=== PATIENT | female | born 1970 | race Caucasian/White ===

== ENCOUNTER → 2018-04-18 09:05 | Outpatient (CLI) | payer OTHER, SELFPAY ==
--- NOTE | 2018-04-18 | DI.MG.S_ITS ---
BILATERAL DIGITAL SCREENING MAMMOGRAM 3D/2D WITH CAD: 04/18/2018 CLINICAL: Routine screening. Family history of breast cancer. Comparison is made to exams dated: 12/11/2016 mammogram - [facility] and 03/22/2010 mammogram - [facility]. There are scattered fibroglandular elements in both breasts. Current study was also evaluated with a Computer Aided Detection (CAD) system. There is an asymmetry in the right breast middle depth outer region seen on the craniocaudal view only. There is possible architectural distortion associated with the asymmetry. No other significant masses, calcifications, or other findings are seen in either breast. IMPRESSION: INCOMPLETE: NEEDS ADDITIONAL IMAGING EVALUATION The asymmetry in the right breast is indeterminate. Additional views with possible ultrasound are recommended. This exam was interpreted at Station ID: [id number]. NOTE: For mammograms, a report in lay terms will be sent to the patient. Approximately 15% of breast malignancies will not be visualized mammographically. In the management of a palpable breast mass, a negative mammogram must not discourage biopsy of a clinically suspicious lesion. Electronically Signed By: José Levi M.D. ecl/:04/22/2018 02:39:53 letter sent: Additional Imaging Needed ACR BI-RADS Category 0: Incomplete 3340F
== END ==
PROVIDERS: PCP Family Medicine; Visit Provider Registered Nurse
DX: Z12.31 Encounter for screening mammogram for malignant neoplasm of breast (principal); Z80.3 Family history of malignant neoplasm of breast
CPT/HCPCS: 77063; 77067

== ENCOUNTER → 2018-04-22 09:10 | Outpatient (CLI) | payer OTHER, SELFPAY ==
--- NOTE | 2018-04-22 | DI.MRI.S_ITS ---
PROCEDURE: MR FOOT RT WO CON INDICATIONS: MEDIAL ANKLE PAIN TECHNIQUE: Noncontrast sagittal T1 spin echo and T2 fast spin echo with fat saturation, long-axis T1 spin echo and T2 fast spin echo with fat saturation, short-axis T1 spin echo and T2 fast spin echo with fat saturation through the forefoot. COMPARISON: None. FINDINGS: Image quality: Diagnostic. Bones and joints: There is no acute fracture, dislocation, or suspicious osseous lesion identified involving the osseous structures of the midfoot or hindfoot. The ankle mortise is well-maintained. There is no osteochondral defect involving the tibial plafond toward the talar dome. Mild marrow edema is identified along the posterior margin of the talus near the posterior subtalar joint, which abuts a small os trigonum. There is a moderate-sized plantar calcaneal spur with corresponding marrow edema. There are mild to moderate degenerative changes involving the lateral tarsal metatarsal joints. No significant joint effusions are appreciated. Medial structures: The deltoid ligament is somewhat heterogeneous, but intact. The spring ligament is also intact. The tibialis posterior tendon demonstrates increased signal near the level of the navicular. A small amount of fluid is contained within its corresponding tendon sheath. The flexor hallucis longus and flexor digitorum longus tendons are intact. The posterior tibial nerve appears to be within normal limits through the region of the tarsal tunnel. Lateral structures: Irregularity of the anterior distal tibiofibular ligament is present. The posterior distal tibiofibular ligament is intact. There is thickening of the anterior talofibular ligament without a focal tear evident. Heterogeneity and increased signal of the posterior talofibular ligament is noted. The calcaneofibular ligament is intact. There is a short segment longitudinal split tear identified involving the peroneus brevis tendon with increased signal and heterogeneity along the region of the tip of the lateral malleolus. Small amount of fluid is contained within its corresponding tendon sheath. No complete tear is evident. There is mild increased signal identified involving the peroneus longus tendon without significant tearing. There is edema identified within the sinus tarsi. Anterior structures: The tibialis anterior, extensor digitorum longus, and extensor hallucis longus tendons appear to be intact. Posterior and plantar structures: There is mild increased signal and focal thickening involving the distal aspect of the Achilles tendon. No significant tearing is identified. Mild increased signal and thickening involving the medial band of the plantar fascia at its calcaneal attachment is present with mild edema evident within the adjacent soft tissues. There is no focal tearing evident. IMPRESSION: 1. Short segment longitudinal split tear of the peroneus brevis tendon with corresponding tendinopathy. There is also peroneus longus tendinopathy. 2. Scarring of the lateral ankle ligaments. Superimposed acute sprains are difficult to exclude. No full-thickness tears. 3. Mild distal tibialis posterior tendinopathy. 4. Mild distal Achilles tendinopathy. 5. Mild to moderate degenerative changes involving the lateral tarsal metatarsal joints. 6. Mild edema involving the posterior margin of the talus abuts a small os trigonum. This is nonspecific, but could potentially be a source of pain. 7. Small moderate-sized plantar calcaneal spur with corresponding thickening of the plantar fascia. Please correlate clinically to exclude plantar fasciitis. Dictated by: Norris Mandujano M.D. on 04/22/2018 at 16:02 Approved by: Norris Mandujano M.D. on 04/22/2018 at 16:10
== END ==
PROVIDERS: PCP Family Medicine; Visit Provider Orthopaedic Surgery
DX: M25.571 Pain in right ankle and joints of right foot (principal); S96.811A Strain of other specified muscles and tendons at ankle and foot level, right foot, initial encounter; M19.071 Primary osteoarthritis, right ankle and foot; M25.474 Effusion, right foot; M77.31 Calcaneal spur, right foot
CPT/HCPCS: 73718

== ENCOUNTER → 2018-05-11 10:06 | Outpatient (CLI) | payer OTHER, SELFPAY ==
--- NOTE | 2018-05-11 | DI.MG.S_ITS ---
UNILATERAL RIGHT DIGITAL DIAGNOSTIC MAMMOGRAM 3D/2D WITH ADDITIONAL VIEWS: 05/11/2018 CLINICAL: Additional evaluation requested from prior study. Comparison is made to exams dated: 04/18/2018 mammogram, 12/11/2016 mammogram - [facility], and 03/22/2010 mammogram - [facility]. There are scattered fibroglandular elements in right breast. Previously noted asymmetry in the right breast middle depth outer region seen on the craniocaudal view only on comparison screening mammogram resolves with additional views and likely represented superimposition of benign anatomic tissues. No significant masses, calcifications, or other findings are seen in the breast. IMPRESSION: INCOMPLETE: NEEDS ADDITIONAL IMAGING EVALUATION No mammographic evidence of malignancy in the imaged breast. A targeted ultrasound of the outer right breast is recommended and will be performed immediately following this exam. This exam was interpreted at Station ID: [id number]. NOTE: For mammograms, a report in lay terms will be sent to the patient. Approximately 15% of breast malignancies will not be visualized mammographically. In the management of a palpable breast mass, a negative mammogram must not discourage biopsy of a clinically suspicious lesion. Electronically Signed By: José Levi M.D. ecl/:05/11/2018 10:44:46 letter sent: Additional Imaging Needed ACR BI-RADS Category 0: Incomplete 3340F
--- NOTE | 2018-05-11 10:08 | DI.US.S_ITS ---
LIMITED ULTRASOUND OF RIGHT BREAST: 05/11/2018 CLINICAL: Patient returns today to evaluate a density in the right breast. Comparison is made to exams dated: 05/11/2018 mammogram, 04/18/2018 mammogram, 12/11/2016 mammogram - [facility], and 03/22/2010 mammogram - [facility]. Real-time and Doppler ultrasound of the right breast 7-11 o'clock region were performed. Rascon scale images of the real-time examination were reviewed. No underlying breast mass or abnormality is identified. IMPRESSION: NEGATIVE 1) No ultrasound findings to correlate with the asymmetry in the outer right breast seen on comparison screening mammography, which resolved with additional diagnostic views. 2) There is no sonographic evidence of malignancy in the imaged outer right breast. Return to annual screening mammography is recommended, next due in April 2019. This exam was interpreted at Station ID: [id number]. Electronically Signed By: José Levi M.D. ecl/:05/11/2018 11:55:28 letter sent: Normal Exam Ultrasound BI-RADS: 1 Negative
== END ==
PROVIDERS: PCP Registered Nurse; Visit Provider Registered Nurse
DX: R92.8 Other abnormal and inconclusive findings on diagnostic imaging of breast (principal)
CPT/HCPCS: 76642; 77065; G0279

== ENCOUNTER → 2018-12-14 11:29 | Outpatient (CLI) | payer OTHER, SELFPAY ==
[2018-12-14 12:04] LABS: Add Manual Diff / Slide Review NO; Basophils Absolute Auto 0 /uL (0-100); Basophils Percent Auto 0.4 % (0-2); Eosinophils Absolute Auto 100 /uL (0-450); Eosinophils Percent Auto 1.3 % (2-4); Hemoglobin 14.2 g/dL (12.0-16.0); Lymphocytes Absolute Auto 1600 /uL (1100-4500); Lymphocytes Percent Auto 37.9 % (25-40); Mean Corpuscular HGB Conc 34.6 % (30-36); Mean Corpuscular Hemoglobin 32.8 PG (26-34); Mean Corpuscular Volume 94.7 fL (80-100); Monocytes Absolute Auto 300 /uL (0-900); Neutrophils Absolute Auto 2300 /uL (1500-7000); Neutrophils Percent Auto 53.4 % (50-75); Platelet Count 309 X10^3/uL (150-400); Red Blood Cell Count 4.33 X10^6/uL (4.0-5.2); Red Cell Distribution Width 13.2 % (11.6-14.8); White Blood Cell Count 4.3 X10^3/uL (4.5-11.0)
[2018-12-14 12:20] LABS: Hemoglobin A1C% w Est Avg Glu 5.2 % (4.0-6.0)
[2018-12-14 12:43] LABS: Alanine Aminotransferase 20 IU/L (9-52); Albumin 3.8 g/dL (3.5-5.0); Albumin Globulin Ratio 1.4 (1.0-2.8); Alkaline Phosphatase 69 U/L (38-126); Aspartate Aminotransferase 18 IU/L (14-36); BUN Creatinine Ratio 14.4 (6-22); Bilirubin Total 0.5 mg/dL (0.2-1.3); Blood Urea Nitrogen 13 mg/dL (7-17); Calcium 9.1 mg/dL (8.4-10.2); Carbon Dioxide 24 mmol/L (22-32); Chloride 105 mmol/L (98-107); Cholesterol 202 mg/dL (140-199); Estimated Glomerular Filt Rate > 60.0 mL/min (>60); Globulin 2.8 g/dL (1.7-4.1); Glucose 85 mg/dL (70-100); HDL Cholesterol 43 mg/dL (40-60); HEMOLYSIS < 15 (0-50); LDL Cholesterol Calculated 98 mg/dL (<100); Potassium 4.4 mmol/L (3.4-5.1); Sodium 137 mmol/L (137-145); Total Protein 6.6 g/dL (6.3-8.2); Triglycerides 305 mg/dL (35-150)
[2018-12-14 13:18] LABS: TSH w/ Reflex to FT4 2.09 uIU/mL (0.47-4.68)
== END ==
PROVIDERS: PCP Registered Nurse; Visit Provider Dermatology
DX: Z00.00 Encounter for general adult medical examination without abnormal findings (principal); Z79.899 Other long term (current) drug therapy
CPT/HCPCS: 36415; 80053; 80061; 83036; 84443; 85025

== ENCOUNTER 2019-03-05 21:51 | Emergency (ER) | payer OTHER, SELFPAY ==
[2019-03-05 22:00] VITALS: BP 150/87; PULSE 105; RESP 19; TEMP 36.6; O2SAT 97
[2019-03-05] MEDS: KETOROLAC 60 MG/2 ML VIAL 15 MG IV (22:37)
[2019-03-05] MEDS: SODIUM CHLORIDE 0.9% 1,000 ML 1000 ML IV (22:38)
[2019-03-05 22:54] VITALS: BP 134/87; PULSE 85; RESP 18; O2SAT 95
[2019-03-05 22:58] LABS: Add Manual Diff / Slide Review NO; Basophils Absolute Auto 0 /uL (0-100); Basophils Percent Auto 0.5 % (0-2); Eosinophils Absolute Auto 100 /uL (0-450); Eosinophils Percent Auto 0.7 % (2-4); Hematocrit 42.7 % (36-46); Hemoglobin 14.2 g/dL (12.0-16.0); Lymphocytes Absolute Auto 2000 /uL (1100-4500); Lymphocytes Percent Auto 22.2 % (25-40); Mean Corpuscular HGB Conc 33.2 % (30-36); Mean Corpuscular Hemoglobin 31.6 PG (26-34); Mean Corpuscular Volume 95.1 fL (80-100); Monocytes Absolute Auto 700 /uL (0-900); Monocytes Percent Auto 7.3 % (3-14); Neutrophils Absolute Auto 6200 /uL (1500-7000); Neutrophils Percent Auto 69.3 % (50-75); Platelet Count 308 X10^3/uL (150-400); Red Blood Cell Count 4.49 X10^6/uL (4.0-5.2); Red Cell Distribution Width 13.3 % (11.6-14.8)
[2019-03-05 23:07] LABS: BUN Creatinine Ratio 16.2 (6-22); Blood Urea Nitrogen 21 mg/dL (7-17); Calcium 8.9 mg/dL (8.4-10.2); Carbon Dioxide 26 mmol/L (22-32); Chloride 105 mmol/L (98-107); Estimated Glomerular Filt Rate 43.9 mL/min (>60); Glucose 113 mg/dL (70-100); HEMOLYSIS < 15 (0-50); Potassium 4.2 mmol/L (3.4-5.1); Sodium 138 mmol/L (137-145)
--- NOTE | 2019-03-05 23:20 | DI.CT.S_ITS ---
PROCEDURE: CT KIDNEY URETER BLADDER (KUB) INDICATIONS: severe Left flank pain TECHNIQUE: Noncontrast 5 mm thick sections acquired from the diaphragms to the symphysis. 5 mm thick coronal and sagittal reformats were then performed. For radiation dose reduction, the following was used: automated exposure control, adjustment of mA and/or kV according to patient size. COMPARISON: None. FINDINGS: Image quality: Excellent. Lung bases: Lung bases are clear. Heart size is normal. A small fat-containing left posterior diaphragmatic hernia can be seen on the left, as on series 3 image 36 (Bochdalek hernia). Urinary system: There is an obstructing left-sided stone seen, which is at the distal ureterovesicular junction, measuring 2-3 mm. There is associated moderate left-sided hydroureter and hydronephrosis. No right-sided hydronephrosis is seen. Obstructing bilateral renal stones are seen, the largest on the right measuring 4 mm and largest on the left measuring 2-3 mm. Both kidneys are normal in size. Bladder wall thickness is normal; no calcified bladder stones. Other solid organs: Liver is normal in size. Gallbladder wall is not thickened. Pancreas is normal in contours. Spleen is normal in size. No adrenal nodules. Peritoneum and bowel: Unenhanced bowel loops demonstrate normal wall thickness and caliber. No free fluid or air. Diverticulosis is seen, without findings of active diverticulitis. Incidental note is made of a normal-appearing appendix. Nodes and vessels: No retroperitoneal or mesenteric adenopathy by size criteria. Aorta and inferior vena cava are normal in caliber. Abdominal wall: A mild periumbilical hernia is seen, containing fat. Pelvis: No free pelvic fluid. No inguinal hernias or adenopathy. Bones: No suspicious bony lesions. No vertebral body compression fractures. This patient has transitional lumbar anatomy. For the purposes of this examination, the level with the last pair of ribs is considered to be T12. By this numbering scheme, the L5 level is transitional and is highly sacralized on the right side. IMPRESSION: Obstructing 2-3 mm stone seen at the left ureterovesicular junction. Nonobstructing bilateral renal stones are seen. 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 Transitional lumbar anatomy Note: No significant discrepancy from the preliminary report. Dictated by: Matthew Shen M.D. on 03/06/2019 at 8:01 Approved by: Matthew Shen M.D. on 03/06/2019 at 8:06
--- NOTE | 2019-03-06 01:10 | ED_ITS ---
HPI - Female Genitourinary General Chief complaint: Urogenital-Female Stated complaint: states flank pain, thinks she has a kidney stone Time Seen by Provider: 03/05/19 22:00 Source: patient Mode of arrival: ambulatory Limitations: no limitations History of Present Illness HPI Narrative: 49F nonsmoker without any significant medical history presents with a chief complaint of sudden onset left flank pain radiation into her groin. She denies provocation or palliation. She has had no fever chills. She has been nauseated but denies any vomiting. She denies any diarrhea. She denies any history of kidney stones but is convinced she has 1 MD Complaint: dysuria and pelvic pain Onset (ago): hour(s) Location: LLQ Female Urogenital Radiation: L Flank Severity: moderate Quality: Burning and Sharp Duration: intermittent Relieving factors: none Exacerbating factors: none Urinary symptoms: Difficulty Urinating Patient : No Related Data Home Medications Medication Instructions Recorded Confirmed spironolactone 50 mg tablet 50 mg PO BID 12/21/18 12/21/18 Previous Rx's Medication Instructions Recorded metronidazole [Metrogel Vaginal] 1 appl VAGINAL HS #70 gm 02/12/18 naltrexone 8 mg-bupropion 90 mg See Rx Instructions PO .COMPLEX 12/21/18 tablet,extended release #90 tab hydrocodone-acetaminophen 1 tab PO Q4-6H PRN #10 tab 03/06/19 ketorolac 10 mg PO Q6H PRN #14 tab 03/06/19 ondansetron 4 mg PO TID-QID PRN #10 tab 03/06/19 tamsulosin [Flomax] 0.4 mg PO DAILY #10 cap 03/06/19 Allergies Allergy/AdvReac Type Severity Reaction Status Date / Time No Known Allergies Allergy Uncoded 12/21/18 10:56 Review of Systems Constitutional Denies chills, Denies fever(s), Denies lethargy and Denies weakness Eyes Denies change in vision, Denies eye discharge, Denies irritation and Denies loss of vision ENT Ears, Nose, Mouth, and Throat: Denies change in voice, Denies neck pain and Denies sore throat Cardiovascular Denies chest pain, Denies irregular heart rhythm, Denies lightheadedness, Denies palpitations, Denies dyspnea, Denies dyspnea on exertion and Denies orthopnea Respiratory Denies cough, Denies dyspnea, Denies dyspnea on exertion and Denies wheezing Gastrointestinal Gastrointestinal: Denies abdominal pain, Denies change in bowel habits, Denies diarrhea, Denies nausea and Denies vomiting Genitourinary Denies hematuria, Reports flank pain, Denies urinary incontinence and Reports urinary urgency Musculoskeletal Denies neck pain Integumentary/Breasts Denies pruritus, Denies erythema, Denies rash and Denies wounds Neurologic Denies confusion, Denies loss of vision and Denies weakness Psychiatric Denies anxiety, Denies confusion, Denies depression, Denies homicidal ideation and Denies suicidal ideation Endocrine Denies palpitations Hematologic/Lymphatic Denies easy bruising Allergic/Immunologic Denies wheezing [facility] Medical History Rosacea (Chronic) Family History (Updated 11/21/16 @ 00:00 by Conversion Provider) Father Prostate cancer Grandfather Age: 94 Lymphoma Social History Smoking Status: Never smoker alcohol intake: current substance use type: does not use Family History Father Prostate cancer Grandfather Age: 94 Lymphoma Social History Smoking Status: Never smoker alcohol intake: current substance use type: does not use Exam Narrative Exam Narrative: GENERAL: This is a well-nourished, well-developed patient, in mild distress. HEAD: Atraumatic. Normocephalic. No temporal or scalp tenderness. EYES: Pupils equal round and reactive. Extraocular motions intact. No scleral icterus. No injection or drainage. ENT: Nose without bleeding, purulent drainage or septal hematoma. Throat without erythema, tonsillar hypertrophy or exudate. Uvula midline. Airway patent. NECK: Trachea midline. No JVD or lymphadenopathy. Supple, nontender, no meningeal signs. CARDIOVASCULAR: Regular rate and rhythm without murmurs, gallops, or rubs. RESPIRATORY: Clear to auscultation. Breath sounds equal bilaterally. No wheezes, rales, or rhonchi. GASTROINTESTINAL: Abdomen soft, non-tender, nondistended. No hepato- splenomegaly, or palpable masses. No guarding. EXTREMITIES: No clubbing, cyanosis, or edema. No joint tenderness, effusion, or edema noted. BACK: Nontender without deformity or crepitance. No flank tenderness. NEURO: AOx3. SKIN: No rash or erythema. Initial Vital Signs Initial Vital Signs: Vital Signs Temperature 98 F 03/05/19 22:00 Pulse Rate 105 H 03/05/19 22:00 Respiratory Rate 19 03/05/19 22:00 Blood Pressure 150/87 H 03/05/19 22:00 Pulse Oximetry 97 03/05/19 22:00 Course Orders Ordered: ED Orders 03/05/19 22:53 Basic Metabolic Panel Stat Complete Blood Count AUTO DIFF Stat 03/05/19 23:20 CT kidney ureter bladder (KUB) Stat Discontinued Medications Hydrocodone Bitart/Acetaminophen (Vicodin Prepack) 1 bottle MISC SEEINSTR ONE Stop: 03/06/19 00:56 Sodium Chloride (Normal Saline 0.9%) 1,000 mls @ 1,000 mls/hr IV BOLUS ONE Stop: 03/05/19 23:11 Last Infusion: 03/05/19 23:44 Dose: 0 mls/hr Admin: 03/05/19 22:38 Dose: 1,000 mls/hr Ketorolac Tromethamine (Toradol) 15 mg IV NOW ONE Stop: 03/05/19 22:13 Last Admin: 03/05/19 22:37 Dose: 15 mg Vital Signs - 8 hr 03/05/19 22:00 03/05/19 22:54 Temperature 98 F Pulse Rate 105 H 85 Respiratory Rate 19 18 Blood Pressure 150/87 H Blood Pressure [Right Arm] 134/87 Pulse Oximetry 97 95 MDM - Female Genitourinary Lab Data Result diagrams: 03/05/19 22:53 03/05/19 22:53 Lab Results 03/05/19 03/05/19 Range/Units 22:53 22:53 WBC 9.0 (4.5-11.0) X10^3/uL RBC 4.49 (4.0-5.2) X10^6/uL Hgb 14.2 (12.0-16.0) g/dL Hct 42.7 (36-46) % MCV 95.1 (80-100) fL MCH 31.6 (26-34) PG MCHC 33.2 (30-36) % RDW 13.3 (11.6-14.8) % Plt Count 308 (150-400) X10^3/uL Neut % (Auto) 69.3 (50-75) % Lymph % (Auto) 22.2 L (25-40) % Douglas % (Auto) 7.3 (3-14) % Eos % (Auto) 0.7 L (2-4) % Baso % (Auto) 0.5 (0-2) % Neut # (Auto) 6200 (1187-2837) /uL Lymph # (Auto) 2000 (9247-1020) /uL Douglas # (Auto) 700 (0-900) /uL Eos # (Auto) 100 (0-450) /uL Baso # (Auto) 0 (0-100) /uL Sodium 138 (137-145) mmol/L Potassium 4.2 (3.4-5.1) mmol/L Chloride 105 (98-107) mmol/L Carbon Dioxide 26 (22-32) mmol/L BUN 21 H (7-17) mg/dL Creatinine 1.30 H (0.52-1.04) mg/dL Estimated GFR 43.9 L (>60) mL/min BUN/Creatinine Ratio 16.2 (6-22) Glucose 113 H (70-100) mg/dL Calcium 8.9 (8.4-10.2) mg/dL Urine Dip Bedside Urine Glucose Negative Bedside Urine Bilirubin - Negative Bedside Urine Ketone - Negative Urine Specific [place] 1.030 Bedside Urine Occult Blood +/- Bedside Urine pH 5.5 Bedside Urine Protein +/- 15 Bedside Urine Urobilinogen - Negative Bedside Urine Nitrite - Negative Bedside Urine Leukocytes - Negative Esterase Imaging Data CT KUB: Radiologist's impression: 2 mm left UVJ obstructing stone course with mild left hydroureteronephrosis Discharge Plan Departure Patient Disposition: Home Clinical Impression: Left ureteral calculus Instructions: DI for Kidney Stones Activity Restrictions/Additional Instructions: *You have been diagnosed with [left ureteral stone ] *What to do: *Take medications as directed *Follow up with your primary care provider in 2-3 days, call for an appointment. Let them know you were seen in the Emergency Department and that we ask that you be seen in follow up *Return to ER if you should have any new, worsening or concerning symptoms, such as [worsening pain, vomiting, fever or shaking chills] Prescriptions: New hydrocodone-acetaminophen 5-325 mg tablet 1 tab PO Q4-6H PRN (Reason: pain) Qty: 10 RF: 0 ketorolac 10 mg tablet 10 mg PO Q6H PRN (Reason: pain) Qty: 14 RF: 0 tamsulosin [Flomax] 0.4 mg capsule 0.4 mg PO DAILY Qty: 10 RF: 0 ondansetron 4 mg tablet,disintegrating 4 mg PO TID-QID PRN (Reason: nausea and vomiting) Qty: 10 RF: 0 No Action metronidazole [Metrogel Vaginal] 0.75 % gel 1 appl Vaginal HS Qty: 70 RF: 6 spironolactone 50 mg tablet 50 mg PO BID RF: 0 Contrave 8-90 mg tablet extended release See Rx Instructions PO .COMPLEX Qty: 90 RF: 0 Referrals: Kailee Arreola ARNP [Primary Care Provider] - Talon Reyes MD [Non-Staff] -
[2019-03-06 01:13] VITALS: BP 130/81; PULSE 79; RESP 18; O2SAT 98
[2019-03-06] MEDS: HYDROCODONE/ACET 5/325 PREPACK 1 BOTTLE MISC (01:13)
== END 2019-03-06 01:19 | disposition home or self-care (01) ==
PROVIDERS: Emergency Provider Emergency Medicine; PCP Registered Nurse
DX: N20.1 Calculus of ureter (principal)
CPT/HCPCS: 36591; 51798; 74176; 80048; 81003; 85025; 96361; 96374; 99283; 99284; J1885

== ENCOUNTER → 2019-03-09 08:40 | Outpatient (CLI) | payer OTHER, SELFPAY | PROVIDERS: PCP Registered Nurse; Visit Provider Registered Nurse | DX: N20.1 Calculus of ureter (principal) | CPT/HCPCS: 82365 ==

== ENCOUNTER 2019-04-27 15:15 | Emergency (ER) | payer OTHER, SELFPAY ==
[2019-04-27 15:21] VITALS: BP 126/77; PULSE 118; RESP 17; TEMP 37.7; O2SAT 98; BMI 46.3
--- NOTE | 2019-04-27 15:30 | ED_ITS ---
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 She describes this as crampy pain, worse with car ride and walking. No specific alleviating features. She states that she has had nausea and some dry heaves but no vomiting. She states she initially attributed the nausea to her new medications, which she has had since starting them 1 week ago as well (Wellbutrin, contrave, naltrexone), not severe now. She states she had a normal bowel movement 1 or 2 days ago, today just small smears of feces, no blood. She denies any urinary symptoms. She denies any possibility of , LMP 3 weeks ago. She states that she has had chills today, no known fever, no sweats. She denies chest pain, dyspnea, pain or swelling in her extremities or other new complaints on systems review Related Data Previous Rx's Medication Instructions Recorded ondansetron 4 mg PO TID-QID PRN #10 tab 03/06/19 naltrexone 8 mg-bupropion 90 mg 2 tab PO BID #120 tab 04/03/19 tablet,extended release spironolactone 50 mg tablet 50 mg PO BID #180 tab 04/03/19 amoxicillin-pot clavulanate 1 tab PO Q12H #20 tab 04/27/19 [Augmentin] ondansetron 4 mg PO Q8H PRN #10 tab 04/27/19 Allergies Allergy/AdvReac Type Severity Reaction Status Date / Time No Known Drug Allergies Allergy Verified 04/27/19 15:21 Review of Systems <Reshma Wakefield PA-C - Last Filed: 04/27/19 20:57> Review of Systems ROS Unobtainable: All systems reviewed & are unremarkable except as noted in HPI and below PFSH <Reshma Wakefield PA-C - Last Filed: 04/27/19 20:57> Medical History (Updated 04/27/19 @ 17:54 by Reshma Wakefield PA-C) Obesity (Chronic) Rosacea (Chronic) Rosacea (Chronic) Surgical History (Updated 04/27/19 @ 15:49 by Reshma Wakefield PA-C) No history of previous surgery (Chronic) Family History Father Prostate cancer Grandfather Age: 94 Lymphoma Social History Smoking Status: Never smoker alcohol intake: current substance use type: does not use Social History Smoking Status: Never smoker alcohol intake: current substance use type: does not use Exam <Reshma Wakefield PA-C - Last Filed: 04/27/19 20:57> Narrative Exam Narrative: GENERAL APPEARANCE: Patient appears uncomfortable but in NAD HEENT: PERRL, EOMI, conjunctiva pink, no scleral icterus NECK: Supple LUNGS: Clear to auscultation bilaterally. HEART: Rate and rhythm regular, normal S1 and S2, no S3 or S4. ABDOMEN: Soft, nondistended, bowel sounds present x 4 quadrants, no masses palpable, no hepatosplenomegaly. Tender throughout right lower quadrant and McBurney's point without guarding or rebound, left upper and lower quadrant palpation causes referred RLQ tenderness. No CVAT EXTREMITIES: No edema, no cyanosis DERMATOLOGIC: No jaundice or exanthem NEUROLOGIC: Alert and oriented with normal speech and coordination Initial Vital Signs Initial Vital Signs: Vital Signs Temperature 99.8 F H 04/27/19 15:21 Pulse Rate 118 H 04/27/19 15:21 Respiratory Rate 17 04/27/19 15:21 Blood Pressure 126/77 04/27/19 15:21 Pulse Oximetry 98 04/27/19 15:21 <Cherry Ramírez DO - Last Filed: 04/28/19 08:32> Initial Vital Signs Initial Vital Signs: Vital Signs Temperature 99.8 F H 04/27/19 15:21 Pulse Rate 118 H 04/27/19 15:21 Respiratory Rate 17 04/27/19 15:21 Blood Pressure 126/77 04/27/19 15:21 Pulse Oximetry 98 04/27/19 15:21 Course <Reshma Wakefield PA-C - Last Filed: 04/27/19 20:57> Course Additional Information: Patient is feeling modestly improved after Toradol. She declines any additional pain medications but states that she does have her prepack at home that we gave her after last visit if needed. She prefers to take Augmentin for diverticulitis, no difficulty tolerating 1st dose here. Giv en a prescription for Zofran as well. She agreed to return if any acutely worsening symptoms or new symptoms such as fever, otherwise advised follow-up with PCP. Orders Ordered: Discontinued Medications Amoxicillin/Clavulanate Potassium (Augmentin 875-125 Mg) 1 tab PO NOW ONE Stop: 04/27/19 16:56 Last Admin: 04/27/19 17:14 Dose: 1 tab Documented by: MEISENB Sodium Chloride (Normal Saline 0.9%) 1,000 mls @ 1,000 mls/hr IV BOLUS ONE Stop: 04/27/19 16:27 Last Infusion: 04/27/19 18:08 Dose: 0 mls/hr Documented by: Admin: 04/27/19 16:10 Dose: 1,000 mls/hr Documented by: MEISENStephanie Ketorolac Tromethamine (Toradol) 30 mg IV NOW ONE Stop: 04/27/19 15:29 Last Admin: 04/27/19 16:10 Dose: 30 mg Documented by: MEISENB Vital Signs Vital signs: Vital Signs - 8 hr 04/27/19 15:21 04/27/19 18:03 Temperature 99.8 F H Pulse Rate 118 H 78 Respiratory Rate 17 15 Blood Pressure 126/77 Blood Pressure [Left Arm] 101/65 Pulse Oximetry 98 100 <Cherry Ramírez DO - Last Filed: 04/28/19 08:32> Orders Ordered: Discontinued Medications Amoxicillin/Clavulanate Potassium (Augmentin 875-125 Mg) 1 tab PO NOW ONE Stop: 04/27/19 16:56 Last Admin: 04/27/19 17:14 Dose: 1 tab Documented by: MEISENB Sodium Chloride (Normal Saline 0.9%) 1,000 mls @ 1,000 mls/hr IV BOLUS ONE Stop: 04/27/19 16:27 Last Infusion: 04/27/19 18:08 Dose: 0 mls/hr Documented by: Admin: 04/27/19 16:10 Dose: 1,000 mls/hr Documented by: NUBIA Ketorolac Tromethamine (Toradol) 30 mg IV NOW ONE Stop: 04/27/19 15:29 Last Admin: 04/27/19 16:10 Dose: 30 mg Documented by: NUBIA Vital Signs Vital signs: Vital Signs - 8 hr 04/27/19 15:21 04/27/19 18:03 Temperature 99.8 F H Pulse Rate 118 H 78 Respiratory Rate 17 15 Blood Pressure 126/77 Blood Pressure [Left Arm] 101/65 Pulse Oximetry 98 100 MDM - Abdominal Pain <Reshma Wakefield PA-C - Last Filed: 04/27/19 20:57> Lab Data Attestation: I reviewed the patient's lab results. Result diagrams: 04/27/19 15:20 04/27/19 15:20 Labs: Lab Results 04/27/19 04/27/19 04/27/19 Range/Units 15:20 15:20 15:20 WBC 14.7 H (4.5-11.0) X10^3/uL RBC 4.60 (4.0-5.2) X10^6/uL Hgb 15.0 (12.0-16.0) g/dL Hct 44.0 (36-46) % MCV 95.6 (80-100) fL MCH 32.6 (26-34) PG MCHC 34.1 (30-36) % RDW 12.9 (11.6-14.8) % Plt Count 326 (150-400) X10^3/uL Neut % (Auto) 84.3 H (50-75) % Lymph % (Auto) 9.7 L (25-40) % Lynn % (Auto) 5.6 (3-14) % Eos % (Auto) 0.1 L (2-4) % Baso % (Auto) 0.3 (0-2) % Neut # (Auto) 90303 H (0004-6440) /uL Lymph # (Auto) 1400 (7521-6804) /uL Lynn # (Auto) 800 (0-900) /uL Eos # (Auto) 0 (0-450) /uL Baso # (Auto) 0 (0-100) /uL PT 12.4 (10.1-12.7) SECONDS INR 1.1 (0.9-1.3) APTT 34 (26.4-36.2) SECONDS Sodium 136 L (137-145) mmol/L Potassium 4.0 (3.4-5.1) mmol/L Chloride 102 (98-107) mmol/L Carbon Dioxide 22 (22-32) mmol/L BUN 12 (7-17) mg/dL Creatinine 1.10 H (0.52-1.04) mg/dL Estimated GFR 53.2 L (>60) mL/min BUN/Creatinine Ratio 10.9 (6-22) Glucose 118 H (70-100) mg/dL Lactate (0.7-2.1) mmol/L Calcium 9.3 (8.4-10.2) mg/dL Total Bilirubin 0.8 (0.2-1.3) mg/dL AST 22 (14-36) IU/L ALT 10 (9-52) IU/L Alkaline Phosphatase 76 (38-126) U/L Total Protein 7.7 (6.3-8.2) g/dL Albumin 4.3 (3.5-5.0) g/dL Globulin 3.4 (1.7-4.1) g/dL Albumin/Globulin Ratio 1.3 (1.0-2.8) Lipase 46 (23-300) U/L Urine RBC (0-5/HPF) Urine WBC (0-5/HPF) Ur Squamous Epith Cells (0-5/HPF) Urine Bacteria (None) Ur Culture Indicated? 04/27/19 04/27/19 Range/Units 15:20 16:02 WBC (4.5-11.0) X10^3/uL RBC (4.0-5.2) X10^6/uL Hgb (12.0-16.0) g/dL Hct (36-46) % MCV (80-100) fL MCH (26-34) PG MCHC (30-36) % RDW (11.6-14.8) % Plt Count (150-400) X10^3/uL Neut % (Auto) (50-75) % Lymph % (Auto) (25-40) % Lynn % (Auto) (3-14) % Eos % (Auto) (2-4) % Baso % (Auto) (0-2) % Neut # (Auto) (7160-2290) /uL Lymph # (Auto) (0158-2075) /uL Lynn # (Auto) (0-900) /uL Eos # (Auto) (0-450) /uL Baso # (Auto) (0-100) /uL PT (10.1-12.7) SECONDS INR (0.9-1.3) APTT (26.4-36.2) SECONDS Sodium (137-145) mmol/L Potassium (3.4-5.1) mmol/L Chloride (98-107) mmol/L Carbon Dioxide (22-32) mmol/L BUN (7-17) mg/dL Creatinine (0.52-1.04) mg/dL Estimated GFR (>60) mL/min BUN/Creatinine Ratio (6-22) Glucose (70-100) mg/dL Lactate 1.4 (0.7-2.1) mmol/L Calcium (8.4-10.2) mg/dL Total Bilirubin (0.2-1.3) mg/dL AST (14-36) IU/L ALT (9-52) IU/L Alkaline Phosphatase (38-126) U/L Total Protein (6.3-8.2) g/dL Albumin (3.5-5.0) g/dL Globulin (1.7-4.1) g/dL Albumin/Globulin Ratio (1.0-2.8) Lipase (23-300) U/L Urine RBC None seen (0-5/HPF) Urine WBC 1-5/hpf (0-5/HPF) Ur Squamous Epith Cells 5-10 /hpf H (0-5/HPF) Urine Bacteria None seen (None) Ur Culture Indicated? Cult not indicated Point of care testing: Point of Care Testing Test Results Negative Urine Dip Bedside Urine Glucose Negative Bedside Urine Bilirubin - Negative Bedside Urine Ketone ++ 40 Urine Specific Dr[place]ut 1.020 Bedside Urine Occult Blood +/- Bedside Urine pH 6.0 Bedside Urine Protein +/- 15 Bedside Urine Urobilinogen - Negative Bedside Urine Nitrite - Negative Bedside Urine Leukocytes +/- [address] scan - abdomen: Radiologist's impression: [facility] [address] [place] [address] CT Scan Report Signed Patient: Lisseth Wild LMR#: [id number] : 1970Acct:[id number] Age/Sex: 49 / FDate of Service: 04/27/19 Loc: ED Accession Number: [id number] Procedure: CT abdomen pelvis w con Ordering Provider: Reshma Wakefield P.A-C PROCEDURE: CT ABDOMEN PELVIS W CON INDICATIONS: RLQ pain TECHNIQUE: After the administration of intravenous contrast, 5 mm thick sections acquired from the diaphragm to the symphysis. 5 mm coronal and sagittal reformats were acquired. For radiation dose reduction, the following was used: automated exposure control, adjustment of mA and/or kV according to patient size. COMPARISON: [facility], CT, CT KIDNEY URETER BLADDER (KUB), 03/05/2019, 23:27. FINDINGS: Image quality: Excellent. ABDOMEN: Lung bases: Lung bases are clear. Heart size is normal. Small hiatal hernia. In addition, there is a small fat containing diaphragmatic hernia in the posterior medial left hemidiaphragm. Solid organs: Liver is normal in size and enhancement. Gallbladder is normal. Biliary system is non dilated. Pancreas enhances normally. Spleen is normal in size and enhancement. No adrenal nodules. Kidneys demonstrate normal size and enhancement, without hydronephrosis. Small nonobstructing renal calculi are seen bilaterally. The 2 mm stone at the left ureterovesical junction seen on 03/05/2019 is no longer vis ualized. Peritoneum and bowel: There are numerous colonic diverticula. Sigmoid colon is mildly thickened. There is fat stranding in the pelvis surrounding the sigmoid colon, consistent with acute diverticulitis. There is a small amount of free fluid. No free air. No organized fluid collections to suggest diverticular abscess. Normal appendix. Bowel loops demonstrate normal caliber. Nodes and vessels: No retroperitoneal or mesenteric adenopathy by size criteria. Aorta and inferior vena cava are normal in size. Miscellaneous: Small fat-containing umbilical hernia is noted. PELVIS: Genitourinary: Bladder wall thickness is normal. Uterus is normal. A couple of cysts are noted in the right ovary. Left ovary is unremarkable. A small amount of free fluid is noted in the cul-de-sac. Miscellaneous: No inguinal hernias or adenopathy. Bones: No suspicious bony lesions. No vertebral body compression fractures. There is articulation between the right transverse process of L5 and sacrum. IMPRESSION: 1. Acute sigmoid diverticulitis. There is a small amount of free of fluid. No organized fluid collection to suggest diverticular abscess. No free air. 2. Normal appendix. 3. Right ovarian cysts. 4. Bilateral nonobstructive renal calculi. Dictated by: Peggy Pinzon M.D. on 04/27/2019 at 16:22 Approved by: Peggy Pinzon M.D. on 04/27/2019 at 16:32 <Cherry Ramírez DO - Last Filed: 04/28/19 08:32> Lab Data Labs: Lab Results 04/27/19 04/27/19 04/27/19 Range/Units 15:20 15:20 15:20 WBC 14.7 H (4.5-11.0) X10^3/uL RBC 4.60 (4.0-5.2) X10^6/uL Hgb 15.0 (12.0-16.0) g/dL Hct 44.0 (36-46) % MCV 95.6 (80-100) fL MCH 32.6 (26-34) PG MCHC 34.1 (30-36) % RDW 12.9 (11.6-14.8) % Plt Count 326 (150-400) X10^3/uL Neut % (Auto) 84.3 H (50-75) % Lymph % (Auto) 9.7 L (25-40) % Lynn % (Auto) 5.6 (3-14) % Eos % (Auto) 0.1 L (2-4) % Baso % (Auto) 0.3 (0-2) % Neut # (Auto) 51806 H (0853-2272) /uL Lymph # (Auto) 1400 (8685-6987) /uL Lynn # (Auto) 800 (0-900) /uL Eos # (Auto) 0 (0-450) /uL Baso # (Auto) 0 (0-100) /uL PT 12.4 (10.1-12.7) SECONDS INR 1.1 (0.9-1.3) APTT 34 (26.4-36.2) SECONDS Sodium 136 L (137-145) mmol/L Potassium 4.0 (3.4-5.1) mmol/L Chloride 102 (98-107) mmol/L Carbon Dioxide 22 (22-32) mmol/L BUN 12 (7-17) mg/dL Creatinine 1.10 H (0.52-1.04) mg/dL Estimated GFR 53.2 L (>60) mL/min BUN/Creatinine Ratio 10.9 (6-22) Glucose 118 H (70-100) mg/dL Lactate (0.7-2.1) mmol/L Calcium 9.3 (8.4-10.2) mg/dL Total Bilirubin 0.8 (0.2-1.3) mg/dL AST 22 (14-36) IU/L ALT 10 (9-52) IU/L Alkaline Phosphatase 76 (38-126) U/L Total Protein 7.7 (6.3-8.2) g/dL Albumin 4.3 (3.5-5.0) g/dL Globulin 3.4 (1.7-4.1) g/dL Albumin/Globulin Ratio 1.3 (1.0-2.8) Lipase 46 (23-300) U/L Urine RBC (0-5/HPF) Urine WBC (0-5/HPF) Ur Squamous Epith Cells (0-5/HPF) Urine Bacteria (None) Ur Culture Indicated? 04/27/19 04/27/19 Range/Units 15:20 16:02 WBC (4.5-11.0) X10^3/uL RBC (4.0-5.2) X10^6/uL Hgb (12.0-16.0) g/dL Hct (36-46) % MCV (80-100) fL MCH (26-34) PG MCHC (30-36) % RDW (11.6-14.8) % Plt Count (150-400) X10^3/uL Neut % (Auto) (50-75) % Lymph % (Auto) (25-40) % Lynn % (Auto) (3-14) % Eos % (Auto) (2-4) % Baso % (Auto) (0-2) % Neut # (Auto) (3218-7971) /uL Lymph # (Auto) (5572-0254) /uL Lynn # (Auto) (0-900) /uL Eos # (Auto) (0-450) /uL Baso # (Auto) (0-100) /uL PT (10.1-12.7) SECONDS INR (0.9-1.3) APTT (26.4-36.2) SECONDS Sodium (137-145) mmol/L Potassium (3.4-5.1) mmol/L Chloride (98-107) mmol/L Carbon Dioxide (22-32) mmol/L BUN (7-17) mg/dL Creatinine (0.52-1.04) mg/dL Estimated GFR (>60) mL/min BUN/Creatinine Ratio (6-22) Glucose (70-100) mg/dL Lactate 1.4 (0.7-2.1) mmol/L Calcium (8.4-10.2) mg/dL Total Bilirubin (0.2-1.3) mg/dL AST (14-36) IU/L ALT (9-52) IU/L Alkaline Phosphatase (38-126) U/L Total Protein (6.3-8.2) g/dL Albumin (3.5-5.0) g/dL Globulin (1.7-4.1) g/dL Albumin/Globulin Ratio (1.0-2.8) Lipase (23-300) U/L Urine RBC None seen (0-5/HPF) Urine WBC 1-5/hpf (0-5/HPF) Ur Squamous Epith Cells 5-10 /hpf H (0-5/HPF) Urine Bacteria None seen (None) Ur Culture Indicated? Cult not indicated Point of care testing: Point of Care Testing Test Results Negative Urine Dip Bedside Urine Glucose Negative Bedside Urine Bilirubin - Negative Bedside Urine Ketone ++ 40 Urine Specific Dr[place]ut 1.020 Bedside Urine Occult Blood +/- Bedside Urine pH 6.0 Bedside Urine Protein +/- 15 Bedside Urine Urobilinogen - Negative Bedside Urine Nitrite - Negative Bedside Urine Leukocytes +/- 15 Esterase Discharge Plan Departure Patient Disposition: Home Clinical Impression: Diverticulitis Discharge Date/Time: 04/27/19 18:09 Instructions: Diverticulitis Activity Restrictions/Additional Instructions: Please continue the Augmentin twice daily. I have also sent a prescription for Zofran in to [facility] for you and you can use the pain medicine you have at home if needed. Please drink plenty of clear fluids, no food except for things like broth and Jell-O for today and tomorrow and you can slowly advance your diet as you feel better. Please remain off of work until you have been on antibiotics for a few days and are feeling better! We recommend that you follow up with your PCP this week for recheck. As we talked about please be sure to return if you have any acutely worsening symptoms or new symptoms such as protracted vomiting or fever. Stop your Contrave as planned Prescriptions: New amoxicillin-pot clavulanate [Augmentin] 875-125 mg tablet 1 tab PO Q12H Qty: 20 RF: 0 ondansetron 4 mg tablet,disintegrating 4 mg PO Q8H PRN (Reason: nausea and vomiting) Qty: 10 RF: 0 No Action spironolactone 50 mg tablet 50 mg PO BID Qty: 180 RF: 3 Contrave 8-90 mg tablet extended release 2 tab PO BID Qty: 120 RF: 5 ondansetron 4 mg tablet,disintegrating 4 mg PO TID-QID PRN (Reason: nausea and vomiting) Qty: 10 RF: 0 Referrals: Kailee Arreola ARNP [Primary Care Provider] -
[2019-04-27 15:36] LABS: Add Manual Diff / Slide Review NO; Basophils Absolute Auto 0 /uL (0-100); Basophils Percent Auto 0.3 % (0-2); Eosinophils Absolute Auto 0 /uL (0-450); Eosinophils Percent Auto 0.1 % (2-4); Lymphocytes Absolute Auto 1400 /uL (1100-4500); Lymphocytes Percent Auto 9.7 % (25-40); Mean Corpuscular HGB Conc 34.1 % (30-36); Mean Corpuscular Hemoglobin 32.6 PG (26-34); Mean Corpuscular Volume 95.6 fL (80-100); Monocytes Absolute Auto 800 /uL (0-900); Monocytes Percent Auto 5.6 % (3-14); Neutrophils Absolute Auto 12400 /uL (1500-7000); Neutrophils Percent Auto 84.3 % (50-75); Platelet Count 326 X10^3/uL (150-400); Red Cell Distribution Width 12.9 % (11.6-14.8); White Blood Cell Count 14.7 X10^3/uL (4.5-11.0)
[2019-04-27 15:42] LABS: INR 1.1 (0.9-1.3); Prothrombin Time 12.4 SECONDS (10.1-12.7)
[2019-04-27 15:45] LABS: PTT Partial Thromboplastin Tim 34 SECONDS (26.4-36.2)
[2019-04-27 15:46] LABS: Lactate (Lactic Acid) 1.4 mmol/L (0.7-2.1)
[2019-04-27 15:47] LABS: Alanine Aminotransferase 10 IU/L (9-52); Albumin 4.3 g/dL (3.5-5.0); Albumin Globulin Ratio 1.3 (1.0-2.8); Alkaline Phosphatase 76 U/L (38-126); Aspartate Aminotransferase 22 IU/L (14-36); BUN Creatinine Ratio 10.9 (6-22); Bilirubin Total 0.8 mg/dL (0.2-1.3); Blood Urea Nitrogen 12 mg/dL (7-17); Calcium 9.3 mg/dL (8.4-10.2); Carbon Dioxide 22 mmol/L (22-32); Chloride 102 mmol/L (98-107); Estimated Glomerular Filt Rate 53.2 mL/min (>60); Globulin 3.4 g/dL (1.7-4.1); Glucose 118 mg/dL (70-100); HEMOLYSIS 39 (0-50); Lipase 46 U/L (23-300); Sodium 136 mmol/L (137-145); Total Protein 7.7 g/dL (6.3-8.2)
[2019-04-27 16:07] LABS: Bacteria Urine None Seen; RBC Urine None Seen (0-5/HPF)
[2019-04-27] MEDS: SODIUM CHLORIDE 0.9% 1,000 ML 1000 ML IV (16:10)
[2019-04-27] MEDS: KETOROLAC 60 MG/2 ML VIAL 30 MG IV (16:10)
[2019-04-27 16:23] LABS: Culture Indicated Urine Cult Not Indicated; Squamous Epithelial Cell Urine 5-10 /HPF (0-5/HPF); WBC Urine 1-5/HPF (0-5/HPF)
[2019-04-27] MEDS: AMOXICILLIN/CLAV 875/125 MG 1 TAB PO (17:14)
[2019-04-27 18:03] VITALS: BP 101/65; PULSE 78; RESP 15; O2SAT 100
== END 2019-04-27 18:09 | disposition home or self-care (01) ==
PROVIDERS: Emergency Medicine; Emergency Provider Internal Medicine; PCP Registered Nurse
DX: K57.92 Diverticulitis of intestine, part unspecified, without perforation or abscess without bleeding (principal)
CPT/HCPCS: 36415; 74177; 80053; 81003; 81015; 81025; 83605; 83690; 85025; 85610; 85730; 93005; 93010; 96361; 96374; 99283; 99285; J1885; Q9967

== ENCOUNTER → 2019-04-29 12:16 | Outpatient (CLI) | payer OTHER, SELFPAY ==
[2019-04-29 12:43] LABS: Add Manual Diff / Slide Review NO; Basophils Absolute Auto 0 /uL (0-100); Basophils Percent Auto 0.3 % (0-2); Eosinophils Absolute Auto 100 /uL (0-450); Eosinophils Percent Auto 1.2 % (2-4); Hematocrit 41.1 % (36-46); Lymphocytes Absolute Auto 1400 /uL (1100-4500); Lymphocytes Percent Auto 16.4 % (25-40); Mean Corpuscular Hemoglobin 32.5 PG (26-34); Mean Corpuscular Volume 95.6 fL (80-100); Monocytes Absolute Auto 500 /uL (0-900); Monocytes Percent Auto 5.7 % (3-14); Neutrophils Absolute Auto 6300 /uL (1500-7000); Neutrophils Percent Auto 76.4 % (50-75); Platelet Count 292 X10^3/uL (150-400); Red Cell Distribution Width 12.8 % (11.6-14.8); White Blood Cell Count 8.3 X10^3/uL (4.5-11.0)
== END ==
PROVIDERS: PCP Registered Nurse; Visit Provider Hospitalist
DX: K57.92 Diverticulitis of intestine, part unspecified, without perforation or abscess without bleeding (principal)
CPT/HCPCS: 36415; 85025

== ENCOUNTER 2019-07-19 06:30 | Day surgery (SDC) | payer OTHER, SELFPAY ==
[2019-07-19 07:08] VITALS: BMI 43.0
[2019-07-19 07:12] VITALS: BP 119/81; PULSE 89; RESP 16; TEMP 36.2; O2SAT 96
[2019-07-19] MEDS: SODIUM CHLORIDE 0.9% 1,000 ML 200 ML IV (07:27)
--- NOTE | 2019-07-19 07:44 | PM.HP.1 ---
History of Present Illness History of Present Illness Date Patient Seen: 07/19/19 Time Patient Seen: 07:44 Chief complaint: [id number] Narrative: 49-year-old female history of recent diverticulitis and chronic gastroesophageal reflux disease presents for elective esophagoduodenoscopy in colonoscopy. Please refer to the H& P dictated 06/10/19 for further detail. There's been no interval change in her health. Patient History Medical History Obesity (Chronic) Rosacea (Chronic) Rosacea (Chronic) Surgical History No history of previous surgery (Chronic) Family & Social History Family History Father Prostate cancer Grandfather Age: 94 Lymphoma Tobacco & Substance use: Smoking Status Never smoker alcohol intake current alcohol intake frequency a few times a month Substance Use Type does not use Meds Home Medications and Allergies Home Medications Medication Instructions Recorded Confirmed Type spironolactone 50 mg tablet 50 mg PO BID #180 tab 04/03/19 07/19/19 Rx ondansetron 4 mg disintegrating 4 mg PO Q8H PRN #14 tab 04/29/19 07/19/19 Rx tablet metronidazole 0.75 % topical cream 1 applictn TOP BID 06/10/19 07/19/19 History amoxicillin-pot clavulanate 1 tab PO Q12H PRN 07/19/19 07/19/19 History [Augmentin] Allergies Allergy/AdvReac Type Severity Reaction Status Date / Time No Known Drug Allergies Allergy Verified 07/19/19 07:07 Review of Systems Review of Systems ROS Unobtainable: All systems reviewed & are unremarkable except as noted in HPI and below Exam Vital Signs (past 8 hours): - 07/19/19 07:12 Temperature 97.2 F L Pulse Rate 89 Respiratory Rate 16 Blood Pressure 119/81 Pulse Oximetry 96 Oxygen Delivery Method Room Air Narrative Exam Narrative: General-no acute distress, well nourished HEENT-moist mucous membranes, no scleral icterus Neck-supple, no lymphadenopathy Chest- non labored respirations, clear to auscultation bilaterally Cardiac-regular rate no peripheral edema Abdomen-soft, nontender, non distended Extremities-warm, well perfused Neurological-alert and oriented, no focal deficits Assessment & Plan Assessment & Plan narrative: 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 This was successfully treated with oral antibiotics. In addition she has a history of longstanding reflux and she presents today to schedule elective screening esophagoduodenoscopy and colonoscopy. Her bowel function returned to normal she has no abdominal pain no fever no nausea vomiting. We discussed the risks of the procedures including bleeding infection perforation missed diagnosis need for further procedure or operation. Her questions have been answered and she is in agreement with this plan.
[2019-07-19] MEDS: LIDOCAINE 4% SOLN 50 ML 20 ML TOP (07:49)
[2019-07-19] MEDS: MIDAZOLAM 5 MG/5 ML VIAL IV (07:50)
[2019-07-19] MEDS: fentaNYL 250 MCG/5 ML INJ IV (07:50)
--- NOTE | 2019-07-19 08:14 | PM.OP.ENDO ---
Operative Date/Time/Diagnoses Date of procedure: 07/19/19 Time of procedure: 08:15 Pre-op diagnosis: chronic GERD, diverticulitis Post-op diagnosis: same Procedure & Clinicians Study performed: Esophagoduodenoscopy Colonoscopy Same procedure as scheduled: Yes Indications: This is a 49-year-old female with recent episode of uncomplicated diverticulitis and longstanding gastroesophageal reflux disease presents for a screening EGD and colonoscopy Surgeon: Colby Meade Procedure Notes SCOAP/Timeout: Performed Procedure in detail: Patient placed in left lateral decubitus position. Time out was performed. Procedural sedation was administered with Versed and Fentanyl. A bite block was placed. the scope was inserted into the mouth and advanced through the esophagus and into the stomach. The pylorus was intubated and the duodenum was normal. The scope was retroflexed within the stomach and there was no significant hiatal hernia. No ulcers, or gastritis. The scope was withdrawn into the esophagus the Z line was seen at 35 cm from the incisions. There was no bruno's esophagitis or masses or strictures. Stomach was desufflated and scope removed. Patient tolerated procedure well. Patient placed in left lateral decubitus position. Time out was performed. Procedural sedation was administered with Versed and Fentanyl. A rectal exam demonstrated no external hemorrhoids no internal masses. Colonoscopy scope was placed into the rectum and advanced through the colon to the cecum. The ileocecal valve was identified. The scope was then slowly withdrawn examining colon thoroughly in all directions. The colonoscopy was notable for the following 1. Sigmoid diverticulosis 2. No masses or polyps 3. Quality of prep excellent Scope withdrawal time: 7 Sedation minutes: 22 Findings: diverticulosis Specimen(s): none sent Complications: none Impression: Diverticulosis Post-procedure Recommendations: Colonscopy in 10 years Disposition: same day surgery
[2019-07-19 08:22] VITALS: BP 112/57; PULSE 74; RESP 12; TEMP 37; O2SAT 93
[2019-07-19 08:27] VITALS: BP 108/56; PULSE 73; RESP 12; O2SAT 96
[2019-07-19 08:32] VITALS: BP 111/59; PULSE 84; RESP 11; O2SAT 97
[2019-07-19 08:39] VITALS: BP 108/75; PULSE 82; RESP 15; TEMP 36.5; O2SAT 96
== END 2019-07-19 08:54 | disposition home or self-care (01) ==
PROVIDERS: PCP Registered Nurse; Visit Provider Surgery
PROC: 0DJ08ZZ Inspection of Upper Intestinal Tract, Via Natural or Artificial Opening Endoscopic (ICD-10-PCS; CPT 43235; principal; 2019-07-19 07:45)
PROC: 0DJD8ZZ Inspection of Lower Intestinal Tract, Via Natural or Artificial Opening Endoscopic (ICD-10-PCS; CPT 45378; 2019-07-19 07:45)
DX: K21.9 Gastro-esophageal reflux disease without esophagitis (principal); Z87.19 Personal history of other diseases of the digestive system; K57.30 Diverticulosis of large intestine without perforation or abscess without bleeding
CPT/HCPCS: 43235; 45378; 99152; J2250; J3010

== ENCOUNTER → 2020-05-17 10:25 | Outpatient (CLI) | payer OTHER, SELFPAY ==
--- NOTE | 2020-05-17 | DI.MG.S_ITS ---
BILATERAL DIGITAL SCREENING MAMMOGRAM 3D/2D WITH CAD: 05/17/2020 CLINICAL: Routine screening. Family history of breast cancer. Comparison is made to exams dated: 05/11/2018 mammogram, 04/18/2018 mammogram, and 12/11/2016 mammogram - [facility]. There are scattered fibroglandular elements in both breasts. Current study was also evaluated with a Computer Aided Detection (CAD) system. No significant masses, calcifications, or other findings are seen in either breast. There has been no significant interval change. IMPRESSION: NEGATIVE There is no mammographic evidence of malignancy. A 1 year screening mammogram is recommended. This exam was interpreted at Station ID: [id number]. NOTE: For mammograms, a report in lay terms will be sent to the patient. Approximately 15% of breast malignancies will not be visualized mammographically. In the management of a palpable breast mass, a negative mammogram must not discourage biopsy of a clinically suspicious lesion. Electronically Signed By: Noé miles/abby:05/17/2020 12:24:57 letter sent: Normal Exam ACR BI-RADS Category 1: Negative 3341F
== END ==
PROVIDERS: PCP Registered Nurse; Referring Provider Registered Nurse; Visit Provider Registered Nurse
DX: Z12.31 Encounter for screening mammogram for malignant neoplasm of breast (principal); Z80.3 Family history of malignant neoplasm of breast
CPT/HCPCS: 77063; 77067

== ENCOUNTER → 2021-09-01 08:35 | Outpatient (CLI) | payer OTHER, SELFPAY ==
--- NOTE | 2021-09-01 | DI.MG.S_ITS ---
BILATERAL DIGITAL SCREENING MAMMOGRAM 3D/2D WITH CAD: 09/01/2021 CLINICAL: Routine screening. Family history of breast cancer. Comparison is made to exams dated: 05/17/2020 mammogram, 04/18/2018 mammogram, and 12/11/2016 mammogram - [facility]. There are scattered fibroglandular elements in both breasts. Current study was also evaluated with a Computer Aided Detection (CAD) system. No significant masses, calcifications, or other findings are seen in either breast. There has been no significant interval change. IMPRESSION: NEGATIVE There is no mammographic evidence of malignancy. A 1 year screening mammogram is recommended. This exam was interpreted at Station ID: [id number]. NOTE: For mammograms, a report in lay terms will be sent to the patient. Approximately 15% of breast malignancies will not be visualized mammographically. In the management of a palpable breast mass, a negative mammogram must not discourage biopsy of a clinically suspicious lesion. Electronically Signed By: Tomas davalos/abby:09/03/2021 07:45:23 letter sent: Normal Exam ACR BI-RADS Category 1: Negative 3341F
== END ==
PROVIDERS: Referring Provider Family Medicine; Visit Provider Family Medicine
DX: Z12.31 Encounter for screening mammogram for malignant neoplasm of breast (principal); Z80.3 Family history of malignant neoplasm of breast
CPT/HCPCS: 77063; 77067

== ENCOUNTER 2022-02-16 23:48 | Emergency (ER) | payer OTHER, SELFPAY ==
--- NOTE | 2022-02-16 23:52 | DI.RAD.S_ITS ---
PROCEDURE: XR CHEST 1V INDICATIONS: chest pain TECHNIQUE: One view of the chest was acquired. COMPARISON: [facility], , CHEST 2 VIEW, 10/31/2016, 8:55. FINDINGS: Surgical changes and devices: None. Lungs and pleura: Lungs are clear. No pleural effusions or pneumothorax. Mediastinum: Mediastinal contours appear normal. Heart size is normal. Bones and chest wall: No suspicious bony lesions. Overlying soft tissues appear unremarkable. IMPRESSION: Normal for age, source of current chest pain symptoms is not seen. Dictated by: Jarvis Mahoney M.D. on 02/17/2022 at 0:41 Approved by: Jarvis Mahoney M.D. on 02/17/2022 at 0:41
[2022-02-16 23:57] VITALS: BP 155/97; PULSE 170; RESP 20; O2SAT 97
[2022-02-17] VITALS (12 sets, daily range): BP systolic 88–144; BP diastolic 50–79; PULSE 76–157; RESP 12–34; O2SAT 94–99
--- NOTE | 2022-02-17 00:05 | ED.ARRPALP ---
HPI - Arrhythmia/Palpitations General Chief Complaint: Arrhythmia/Palpitations Stated Complaint: A FIB Time Seen by Provider: 02/16/22 23:53 Source: patient Mode of arrival: Ambulatory History of Present Illness HPI narrative: 52-year-old woman with a history of diverticulitis, kidney stones and rosacea was laying down this evening and noticed that her heart was pounding with the mild central heaviness. She sat up and with a home monitor recognize that she was in atrial fibrillation and comes in for further evaluation. She has never had problems with previous cardiac issues, atrial fibrillation or blood pressure problems. She can sense the fluttering but is not having overt pain or feeling short of breath at this time. She notes that she had COVID in December of this year and is fully vaccinated. She denies any stimulants or weight loss medications. No recent fever, cough, chills, vomiting, diarrhea, abdominal pain, trauma of any kind. Related Data Home Medications Medication Instructions Recorded Confirmed amoxicillin 875 mg-potassium 1 tab PO Q12H PRN diverticulitis 07/19/19 07/19/19 clavulanate 125 mg tablet (Augmentin) Previous Rx's Medication Instructions Recorded spironolactone 50 mg tablet 50 mg PO BID #180 tabs 04/03/19 ondansetron 4 mg disintegrating 4 mg PO Q8H PRN nausea and 04/29/19 tablet vomiting #14 tabs metronidazole 0.75 % topical gel 1 applictn topical BID #45 grams 12/28/19 apixaban 5 mg tablet (Eliquis) 5 mg PO BID #60 tabs 02/17/22 Allergies Allergy/AdvReac Type Severity Reaction Status Date / Time No Known Drug Allergies Allergy Verified 07/19/19 07:07 Review of Systems Review of Systems Narrative: Remainder of complete review of systems is otherwise unremarkable except for that included in the HPI. Patient History Medical History (Updated 02/17/22 @ 01:26 by Alyssa Teresa MD) Obesity Paroxysmal atrial fibrillation Rosacea Rosacea Surgical History No history of previous surgery Family History Father Prostate cancer Grandfather Age: 97 Lymphoma Social History Smoking Status: Never smoker alcohol intake: current substance use type: does not use Smoking Status: Never smoker alcohol intake frequency: a few times a month Substance Use Type: does not use Exam Initial Vital Signs Initial Vital Signs: Vital Signs Pulse Rate 170 H 02/16/22 23:57 Respiratory Rate 20 02/16/22 23:57 Blood Pressure 155/97 H 02/16/22 23:57 Pulse Oximetry 97 02/16/22 23:57 Oxygen Delivery Method 02/16/22 23:57 General: Healthy appearing, in no acute distress. Able to give a complete and coherent history. Well-nourished well-developed HEENT: Moist mucous membranes, normal sclera with reactive pupils, Neck: No JVD, supple Respiratory: Lungs are clear to auscultation, no wheezing no rales no rhonchi. Full and symmetrical air movement Cardiac: Tachycardic and irregular but no murmurs no bruits Abdomen: Soft, nontender, good bowel tones, no flank pain Skin: Warm and dry, no rashes Neurologic: Grossly neurologically intact with no obvious asymmetries or abnormalities Extremities: No trauma, well perfused Psych: Cooperative, appropriate insight and affect Course Orders Ordered: ED Orders 02/16/22 23:52 XR chest 1V Stat EKG-12 Lead Stat 02/16/22 23:53 BNP [NT-proBNP (BNP-Adult 18+)] Stat 02/16/22 23:59 Complete Blood Count AUTO DIFF Stat Comprehensive Metabolic Panel Stat Lipase Stat Magnesium Stat PT [Prothrombin Time INR] Stat Partial Thromboplastin Time Stat Troponin & CK Cardiac Panel Stat 02/17/22 00:04 COVID19 -Nasal RAPID/Pre-Proc Stat 02/17/22 00:13 D Dimer Stat TSH [Thyroid Stimulating Hormone] Stat Discontinued Medications Apixaban (Apixaban 5 Mg Tablet) 5 mg PO NOW ONE Stop: 02/17/22 00:15 Last Admin: 02/17/22 00:49 Dose: 5 mg Documented By: MAGDY Vital Signs Vital signs: Vital Signs - 8 hr 02/16/22 23:57 02/17/22 00:39 02/17/22 00:49 Pulse Rate 170 H 153 H 156 H Respiratory Rate 20 18 16 Blood Pressure 155/97 H Pulse Oximetry 97 98 99 Oxygen Delivery Method Room Air 02/17/22 00:49 Pulse Rate Respiratory Rate Blood Pressure 144/77 H Pulse Oximetry Oxygen Delivery Method MDM - Arrhythmia/Palpitations Lab Data Result diagrams: 02/16/22 23:59 02/16/22 23:59 Labs: Lab Results 02/16/22 02/16/22 02/16/22 Range/Units 23:53 23:59 23:59 WBC 11.5 H (4.5-11.0) X10^3/uL RBC 4.62 (4.0-5.2) X10^6/uL Hgb 14.9 (12.0-16.0) g/dL Hct 43.5 (36-46) % MCV 94.2 (80-100) fL MCH 32.3 (26-34) PG MCHC 34.3 (30-36) % RDW 13.0 (11.6-14.8) % Plt Count 368 (150-400) X10^3/uL Neut % (Auto) Not Reportable Lymph % (Auto) Not Reportable [place] % (Auto) Not Reportable Eos % (Auto) Not Reportable Baso % (Auto) Not Reportable Lymph # (Auto) Not Reportable [place] # (Auto) Not Reportable Baso # (Auto) Not Reportable PT (10.1-12.7) SECONDS INR (0.9-1.3) APTT (26.4-36.2) SECONDS D-Dimer (<230) ng/mL Sodium 139 (137-145) mmol/L Potassium 2.8 L (3.4-5.1) mmol/L Chloride 104 (98-107) mmol/L Carbon Dioxide 21 L (22-32) mmol/L BUN 11 (7-17) mg/dL Creatinine 1.22 H (0.52-1.04) mg/dL Estimated GFR 54 L (>60) mL/min BUN/Creatinine Ratio 9.0 (6-22) Glucose 129 H (70-100) mg/dL Calcium 9.1 (8.4-10.2) mg/dL Magnesium 2.1 (1.6-2.3) mg/dL Total Bilirubin 0.6 (0.2-1.3) mg/dL AST 26 (14-36) IU/L ALT 17 (<35) IU/L Alkaline Phosphatase 78 (38-126) U/L Total Creatine Kinase 119 (30-135) U/L CK-MB (CK-2) 0.71 (<2.37) ng/mL CK-MB (CK-2) Rel Index 0.6 L (1.5-5.0) % Troponin I < 0.012 (0.01-0.034) ng/mL NT-Pro-B Natriuret Pep 32 (<125) pg/mL Total Protein 7.5 (6.3-8.2) g/dL Albumin 4.5 (3.5-5.0) g/dL Globulin 3.0 (1.7-4.1) g/dL Albumin/Globulin Ratio 1.5 (1.0-2.8) Lipase 114 (23-300) U/L TSH (0.47-4.68) uIU/mL 02/16/22 02/16/22 02/16/22 Range/Units 23:59 23:59 23:59 WBC (4.5-11.0) X10^3/uL RBC (4.0-5.2) X10^6/uL Hgb (12.0-16.0) g/dL Hct (36-46) % MCV (80-100) fL MCH (26-34) PG MCHC (30-36) % RDW (11.6-14.8) % Plt Count (150-400) X10^3/uL Neut % (Auto) Lymph % (Auto) [place] % (Auto) Eos % (Auto) Baso % (Auto) Lymph # (Auto) [place] # (Auto) Baso # (Auto) PT 11.4 (10.1-12.7) SECONDS INR 1.0 (0.9-1.3) APTT 38 H (26.4-36.2) SECONDS D-Dimer < 200 (<230) ng/mL Sodium (137-145) mmol/L Potassium (3.4-5.1) mmol/L Chloride (98-107) mmol/L Carbon Dioxide (22-32) mmol/L BUN (7-17) mg/dL Creatinine (0.52-1.04) mg/dL Estimated GFR (>60) mL/min BUN/Creatinine Ratio (6-22) Glucose (70-100) mg/dL Calcium (8.4-10.2) mg/dL Magnesium (1.6-2.3) mg/dL Total Bilirubin (0.2-1.3) mg/dL AST (14-36) IU/L ALT (<35) IU/L Alkaline Phosphatase (38-126) U/L Total Creatine Kinase (30-135) U/L CK-MB (CK-2) (<2.37) ng/mL CK-MB (CK-2) Rel Index (1.5-5.0) % Troponin I (0.01-0.034) ng/mL NT-Pro-B Natriuret Pep (<125) pg/mL Total Protein (6.3-8.2) g/dL Albumin (3.5-5.0) g/dL Globulin (1.7-4.1) g/dL Albumin/Globulin Ratio (1.0-2.8) Lipase (23-300) U/L TSH 3.68 (0.47-4.68) uIU/mL Imaging Data Chest x-ray: Radiologist's Impresson: FINDINGS: Surgical changes and devices: None. Lungs and pleura: Lungs are clear. No pleural effusions or pneumothorax. Mediastinum: Mediastinal contours appear normal. Heart size is normal. Bones and chest wall: No suspicious bony lesions. Overlying soft tissues appear unremarkable. IMPRESSION: Normal for age, source of current chest pain symptoms is not seen. Dictated by: Jarvis Mahoney M.D. on 02/17/2022 at 0:41 ECG Data Interpretation: Atrial fibrillation at a rate of [address] depression MDM Narrative Medical decision making narrative: Otherwise healthy 52-year-old woman with acute onset atrial fibrillation this evening as she was lying on for bed. Labs are unremarkable with no evidence of acute coronary syndrome, thyroid abnormalities or other significant problems. Potassium is slightly low at 2.6 Patient spontaneously converts at 1:20 a.m. this morning. Labs remain reassuring. ST lateral changes of resolved when she is back in a sinus rhythm. We discussed spironolactone as a probable cause of the hypothyroidism as a significant potential reason for the atrial fibrillation. At this point she does not feel that the spironolactone is all that effective for her rosacea and will be discontinuing it. In the meantime I have suggested Eliquis 5 mg b.i.d. for 3 months and a follow-up with her primary care physician. An outpatient echocardiogram may be appropriate and helpful in sorting out the underlying etiology of her atrial fibrillation. Discharge Plan Departure Patient Disposition: Home Clinical Impression: Hypokalemia Atrial fibrillation Qualifiers: Atrial fibrillation type: paroxysmal Qualified Code(s): I48.0 - Paroxysmal atrial fibrillation Instructions: DI for Atrial Fibrillation Activity Restrictions/Additional Instructions: Thank you for coming in tonight Your potassium was 2.8 and your creatinine was 1.2. These are the only significant abnormalities in your blood work. I have given you copies of your EKG. In the rapid atrial fibrillation you did have some lateral ST changes that resolved completely once you were back in a regular sinus rhythm. We did replace her potassium this evening with 10 mEq IV and 40 orally. If your stopping the spironolactone anticipate that your kidneys will fix the rest. I would recommend that you follow-up with your primary care doctor. At some point in the future an outpatient echocardiogram would probably be an appropriate part of your workup. Although I suspect that it is low potassium that caused the arrhythmia tonight, it is always nice to look for alternative explanations. I am going to suggest Eliquis 5 mg b.i.d. for 90 days to reduce your risk of stroke should you have recurrent episodes of atrial fibrillation in the next months. You prescription was electronically sent to [facility]. If you find that you are getting worse or develop any new symptoms, please feel free to return to the emergency department for further evaluation. Prescriptions: New Eliquis 5 mg tablet 5 mg PO BID Qty: 60 2RF No Action spironolactone 50 mg tablet 50 mg PO BID Qty: 180 3RF metronidazole 0.75 % gel 1 applictn TOP BID Qty: 45 3RF ondansetron 4 mg tablet,disintegrating 4 mg PO Q8H PRN (Reason: nausea and vomiting) Qty: 14 0RF amoxicillin-pot clavulanate [Augmentin] 875-125 mg tablet 1 tab PO Q12H PRN (Reason: diverticulitis)
[2022-02-17 00:22] LABS: Prothrombin Time 11.4 SECONDS (10.1-12.7)
[2022-02-17 00:25] LABS: PTT Partial Thromboplastin Tim 38 SECONDS (26.4-36.2)
[2022-02-17 00:26] LABS: Alanine Aminotransferase 17 IU/L (<35); Albumin 4.5 g/dL (3.5-5.0); Albumin Globulin Ratio 1.5 (1.0-2.8); Alkaline Phosphatase 78 U/L (38-126); Aspartate Aminotransferase 26 IU/L (14-36); Bilirubin Total 0.6 mg/dL (0.2-1.3); Blood Urea Nitrogen 11 mg/dL (7-17); Calcium 9.1 mg/dL (8.4-10.2); Carbon Dioxide 21 mmol/L (22-32); Chloride 104 mmol/L (98-107); Creatine Kinase 119 U/L (30-135); Estimated Glomerular Filt Rate 54 mL/min (>60); Glucose 129 mg/dL (70-100); HEMOLYSIS < 15 (0-50); Lipase 114 U/L (23-300); Magnesium 2.1 mg/dL (1.6-2.3); Potassium 2.8 mmol/L (3.4-5.1); Sodium 139 mmol/L (137-145); Total Protein 7.5 g/dL (6.3-8.2)
[2022-02-17 00:27] LABS: Hematocrit 43.5 % (36-46); Hemoglobin 14.9 g/dL (12.0-16.0); Mean Corpuscular HGB Conc 34.3 % (30-36); Mean Corpuscular Hemoglobin 32.3 PG (26-34); Mean Corpuscular Volume 94.2 fL (80-100); Platelet Count 368 X10^3/uL (150-400); Red Blood Cell Count 4.62 X10^6/uL (4.0-5.2); White Blood Cell Count 11.5 X10^3/uL (4.5-11.0)
[2022-02-17 00:32] LABS: Add Manual Diff / Slide Review YES
[2022-02-17 00:34] LABS: D Dimer < 200 ng/mL (<230)
[2022-02-17 00:35] LABS: NT-proBNP (BNP-Adult 18+) 32 pg/mL (<125)
[2022-02-17 00:38] LABS: Troponin I < 0.012 ng/mL (0.01-0.034)
[2022-02-17 00:42] LABS: CKMB % Relative Index 0.6 % (1.5-5.0); Creatine Kinase MB 0.71 ng/mL (<2.37)
[2022-02-17] MEDS: APIXABAN 5 MG TABLET PO (00:49)
[2022-02-17 01:08] LABS: Thyroid Stimulating Hormone 3.68 uIU/mL (0.47-4.68)
--- NOTE | 2022-02-17 01:28 | PC.NURSE ---
called to pt's room, pt states I think I converted, ST noted on monitor Dr Teresa informed and repeat EKG called for
[2022-02-17 01:29] LABS: COVID19 -Nasal RAPID Negative (Negative)
[2022-02-17] MEDS: SODIUM CHLORIDE 0.9% 1,000 ML 1000 ML IV (01:38)
[2022-02-17] MEDS: POTASSIUM CHLORIDE IN WATER 10 MEQ/100 ML PIGGYBACK 100 MEQ IV (01:39)
[2022-02-17] MEDS: POTASSIUM CHLORIDE 20 MEQ TAB 40 MEQ PO (01:39)
[2022-02-17 01:58] LABS: Neutrophils Absolute Manual 3680 /uL (3000-5900); Total Cells Counted 100
[2022-02-17 01:59] LABS: RBC Morphology Normal Morphology
== END 2022-02-17 03:55 | disposition home or self-care (01) ==
PROVIDERS: Emergency Provider Emergency Medicine
DX: I48.0 Paroxysmal atrial fibrillation (principal); E87.6 Hypokalemia; Z20.822 Contact with and (suspected) exposure to COVID-19; Z86.16 Personal history of COVID-19
CPT/HCPCS: 36415; 71045; 80053; 82550; 82553; 83690; 83735; 83880; 84443; 84484; 85007; 85025; 85379; 85610; 85730; 87635; 93005; 93010; 96360; 99284; C9803

== ENCOUNTER → 2022-10-16 09:52 | Outpatient (CLI) | payer OTHER, SELFPAY ==
--- NOTE | 2022-10-16 | DI.MG.S_ITS ---
BILATERAL DIGITAL SCREENING MAMMOGRAM 3D/2D WITH CAD: 10/16/2022 CLINICAL: Routine screening. Family history of breast cancer. No prior exams were available for comparison. There are scattered areas of fibroglandular density in both breasts (category b / 25%-50% glandular tissue). Current study was also evaluated with a Computer Aided Detection (CAD) system. No significant masses, calcifications, or other findings are seen in either breast. IMPRESSION: NEGATIVE There is no mammographic evidence of malignancy. A 1 year screening mammogram is recommended. Based on the Tyrer Cuzick model (a risk assessment model) the patient's lifetime risk is 17.1% and her 10 year risk is 4.1%. According to the ACR, ACS, and NCCN guidelines, an annual breast MRI exam along with mammogram is recommended if the patient's lifetime risk is 20% or greater. This exam was interpreted at Station ID: [id number]. NOTE: For mammograms, a report in lay terms will be sent to the patient. Approximately 15% of breast malignancies will not be visualized mammographically. In the management of a palpable breast mass, a negative mammogram must not discourage biopsy of a clinically suspicious lesion. Electronically Signed By: Man Hodgson M.D. acr/penrad:10/16/2022 10:30:50 letter sent: Normal Exam ACR BI-RADS Category 1: Negative [id number]
== END ==
PROVIDERS: PCP Family Medicine; Referring Provider Family Medicine; Visit Provider Family Medicine
DX: Z12.31 Encounter for screening mammogram for malignant neoplasm of breast (principal); Z80.3 Family history of malignant neoplasm of breast
CPT/HCPCS: 77063; 77067